=== PATIENT | male | born 1985 | race Hispanic/Latino ===

== ENCOUNTER 2017-07-10 00:54 | Emergency (ER) | payer OTHER, SELFPAY ==
[2017-07-10 01:25] LABS: #Basophils 0.1 thou/uL (0.0-0.2); #Eosinphils 0.2 thou/uL (0.0-0.7); #Lymphocytes 2.7 thou/uL (1.20-3.40); #Monocytes 0.9 thou/uL (0.11-0.59); #Neutrophils 6.3 thou/uL (1.40-6.50); %Basophils 1.2 % (0.0-1.0); %Eosinophils 2.3 % (0.0-10.0); %Lymphocytes 26.6 % (21.0-51.0); %Monocytes 9.1 % (0.0-10.0); %Neutrophils 60.9 % (42.0-75.0); Hemoglobin 16.2 g/dL (14.0-18.0); Mean Corpuscular HGB CONC 36.1 g/dL (32.0-36.0); Mean Corpuscular Hemoglobin 30.3 pg (27.0-31.0); Mean Corpuscular Volume 83.9 fl (80.0-94.0); Mean Platelet Volume 6.4 fL (7.4-10.4); Platelet Count 292 thou/uL (130-400); RBC Distribution Width 11.9 % (11.5-14.5); Red Blood Cell (RBC) Count 5.35 mill/uL (4.70-6.10); White Blood Cell (WBC) Count 10.3 thou/uL (4.8-10.8)
[2017-07-10 01:50] LABS: ALT (SGPT) 30 U/L (8-55); AST (SGOT) 20 U/L (5-34); Albumin 4.8 g/dL (3.5-5.0); Alkaline Phosphatase 76 U/L (40-150); Anion Gap 9 mmol/L (10-20); BUN (Urea Nitrogen) 10 mg/dL (8.9-20.6); Bilirubin, Total 0.5 mg/dL (0.2-1.2); Calc. Creatinine Clearance 0 mL/min (70-130); Calcium 9.9 mg/dL (7.8-10.44); Carbon Dioxide 31 mmol/L (22-29); Chloride 103 mmol/L (98-107); Estimated GFR-MDRD Greater than 90; Globulin 3.1 g/dL (2.4-3.5); Glucose 125 mg/dL (70-105); Potassium 3.6 mmol/L (3.5-5.1); Protein, Total 7.9 g/dL (6.0-8.3); Sodium 139 mmol/L (136-145)
[2017-07-10] MEDS ORDERED: Nitroglycerin 2% Ointment 1 INCH/1 GM Packet ONE (01:53)
[2017-07-10 01:54] LABS: CKMB 2.5 ng/mL (0-6.6); Troponin I Less than 0.010 ng/mL (< 0.028)
[2017-07-10 04:19] LABS: Troponin I Less than 0.010 ng/mL (< 0.028)
[2017-07-10] MEDS ORDERED: Nitroglycerin 2% Ointment 1 INCH/1 GM Packet TOP SCH (04:45)
[2017-07-10] MEDS ORDERED: Lisinopril 10 MG TAB PO SCH (04:45)
[2017-07-10] MEDS ORDERED: Aspirin 325 MG TAB PO SCH (04:45)
--- NOTE | 2017-07-10 07:54 | RAD ---
AP VIEW CHEST: HISTORY: Heart palpitations for 1 week, getting worse. FINDINGS: AP view chest is obtained. Mild pulmonary vascular congestion is seen. No evidence of effusions, pn eumonia, or pneumothorax is seen. No evidence of significant airspace disease is seen. IMPRESSION: Pulmonary vascular congestion; otherwise, unremarkable AP view chest. POS: [facility]
--- NOTE | 2017-08-21 | EKG ---
Test Reason : Blood Pressure : / mmHG Vent. Rate : 097 BPM Atrial Rate : 097 BPM P-R Int : 114 ms QRS Dur : 094 ms QT Int : 346 ms P-R-T Axes : 025 053 090 degrees QTc Int : 439 ms Normal sinus rhythm Nonspecific ST and T wave abnormality Abnormal ECG Confirmed by SAÚL JOHNSON ([id number]), editor continuity and script MOSHE SULLIVAN ([id number]) on 08/20/2017 11:59:48 PM Referred By: Confirmed By:SAÚL JOHNSON
== END 2017-07-10 05:42 | disposition home or self-care (01) ==
LOC: ERS 00:54
DX: I10 Essential (primary) hypertension (principal); F17.210 Nicotine dependence, cigarettes, uncomplicated
CPT/HCPCS: 36415; 71045; 80053; 82553; 84484; 85025; 93005; 94760

== ENCOUNTER 2017-09-27 18:40 | Emergency (ER) | payer SELFPAY ==
[2017-09-27 19:28] LABS: #Basophils 0.1 thou/uL (0.0-0.2); #Eosinphils 0.1 thou/uL (0.0-0.7); #Lymphocytes 2.3 thou/uL (1.20-3.40); #Monocytes 0.7 thou/uL (0.11-0.59); #Neutrophils 7.5 thou/uL (1.40-6.50); %Eosinophils 0.8 % (0.0-10.0); %Lymphocytes 21.5 % (21.0-51.0); %Monocytes 6.4 % (0.0-10.0); %Neutrophils 70.3 % (42.0-75.0); Hemoglobin 16.6 g/dL (14.0-18.0); Mean Corpuscular HGB CONC 35.9 g/dL (32.0-36.0); Mean Corpuscular Hemoglobin 30.3 pg (27.0-31.0); Mean Corpuscular Volume 84.4 fL (78.0-98.0); Mean Platelet Volume 6.6 fL (7.4-10.4); Platelet Count 253 thou/uL (130-400); RBC Distribution Width 11.8 % (11.5-14.5); Red Blood Cell (RBC) Count 5.49 mill/uL (4.70-6.10); White Blood Cell (WBC) Count 10.6 thou/uL (4.8-10.8)
[2017-09-27 19:51] LABS: ALT (SGPT) 26 U/L (8-55); AST (SGOT) 19 U/L (5-34); Albumin 5.2 g/dL (3.5-5.0); Alkaline Phosphatase 69 U/L (40-150); Anion Gap 18 mmol/L (10-20); BUN (Urea Nitrogen) 13 mg/dL (8.9-20.6); Bilirubin, Total 1.3 mg/dL (0.2-1.2); CK (CPK) 58 U/L (30-200); Calc. Creatinine Clearance 0 mL/min (70-130); Calcium 10.4 mg/dL (7.8-10.44); Carbon Dioxide 23 mmol/L (22-29); Chloride 102 mmol/L (98-107); Estimated GFR-MDRD 84; Globulin 3.1 g/dL (2.4-3.5); Glucose 88 mg/dL (70-105); Potassium 3.8 mmol/L (3.5-5.1); Protein, Total 8.3 g/dL (6.0-8.3)
[2017-09-27 19:54] LABS: Sodium 139 mmol/L (136-145)
[2017-09-27 19:55] LABS: CKMB 0.8 ng/mL (0-6.6); Troponin I Less than 0.010 ng/mL (< 0.028)
[2017-09-27] MEDS ORDERED: Ketorolac Tromethamine 30 MG/ML VIAL ONE ×2 (20:50→20:53)
[2017-09-27 22:31] LABS: Troponin I 0.018 ng/mL (< 0.028)
--- NOTE | 2017-10-01 11:48 | EKG ---
Test Reason : LUE DISCOMFORT Blood Pressure : / mmHG Vent. Rate : 097 BPM Atrial Rate : 097 BPM P-R Int : 148 ms QRS Dur : 094 ms QT Int : 346 ms P-R-T Axes : 025 068 069 degrees QTc Int : 439 ms Normal sinus rhythm with sinus arrhythmia Normal ECG Confirmed by TRISTEN WITT, STEVE ([id number]), photograph editor GEETA ROME ([id number]) on 10/01/2017 11:48:24 AM Referred By: Confirmed By:STEVE RAMON MD
== END 2017-09-27 22:57 | disposition home or self-care (01) ==
LOC: ERS 18:40
DX: R07.89 Other chest pain (principal); I10 Essential (primary) hypertension; F17.210 Nicotine dependence, cigarettes, uncomplicated; Z79.899 Other long term (current) drug therapy
CPT/HCPCS: 36415; 80053; 82550; 82553; 83880; 84484; 85025; 93005; 96372; J1885

== ENCOUNTER 2021-04-10 17:02 | Emergency (ER) | payer SELFPAY ==
[2021-04-11 17:15] LABS: SARS-CoV-2 PCR by NAA DETECTED (NotDetected)
== END 2021-04-10 17:52 | disposition home or self-care (01) ==
LOC: ERS 17:02
DX: U07.1 COVID-19 (principal); I10 Essential (primary) hypertension; Z87.891 Personal history of nicotine dependence
CPT/HCPCS: 99283; U0003; U0005

== ENCOUNTER 2021-04-14 17:01 | Emergency (ER) | payer SELFPAY ==
[2021-04-14 21:37] LABS: #Monocytes 0.5 thou/uL (0.11-0.59); #Neutrophils 3.3 thou/uL (1.40-6.50); %Basophils 0.3 % (0.0-1.0); %Eosinophils 0.8 % (0.0-10.0); %Lymphocytes 20.5 % (21.0-51.0); %Monocytes 10.1 % (0.0-10.0); %Neutrophils 68.4 % (42.0-75.0); Hemoglobin 16.4 g/dL (14.0-18.0); Mean Corpuscular HGB CONC 33.4 g/dL (32.0-36.0); Mean Corpuscular Hemoglobin 28.3 pg (27.0-31.0); Mean Corpuscular Volume 84.8 fL (78.0-98.0); Platelet Count 235 thou/uL (130-400); RBC Distribution Width 12.1 % (11.5-14.5); Red Blood Cell (RBC) Count 5.78 mill/uL (4.70-6.10); White Blood Cell (WBC) Count 4.8 thou/uL (4.8-10.8)
[2021-04-14 21:39] LABS: ALT (SGPT) 28 U/L (8-55); AST (SGOT) 19 U/L (5-34); Albumin 4.8 g/dL (3.5-5.0); Alkaline Phosphatase 76 U/L (40-110); Anion Gap 16 mmol/L (10-20); BUN (Urea Nitrogen) 7 mg/dL (8.9-20.6); Bilirubin, Total 0.6 mg/dL (0.2-1.2); Calc. Creatinine Clearance 0 mL/min (70-130); Carbon Dioxide 25 mmol/L (22-29); Chloride 104 mmol/L (98-107); Glucose 130 mg/dL (70-105); Potassium 4.1 mmol/L (3.5-5.1); Protein, Total 7.8 g/dL (6.0-8.3); Sodium 141 mmol/L (136-145)
[2021-04-14] MEDS ORDERED: Albuterol 200 PUFF (6.7GM INHALER) ONE (23:01)
== END 2021-04-14 23:27 | disposition home or self-care (01) ==
LOC: ERS 17:01
DX: U07.1 COVID-19 (principal); I10 Essential (primary) hypertension; F17.210 Nicotine dependence, cigarettes, uncomplicated
CPT/HCPCS: 36415; 71045; 80053; 84484; 85025; 85379; 93005

== ENCOUNTER 2021-04-15 00:34 | Emergency (ER) | payer SELFPAY | END 2021-04-15 02:28 | disposition home or self-care (01) | LOC: ERS 00:34 | DX: R55 Syncope and collapse (principal); S09.90XA Unspecified injury of head, initial encounter; S20.211A Contusion of right front wall of thorax, initial encounter; Z86.16 Personal history of COVID-19; Z87.891 Personal history of nicotine dependence | CPT/HCPCS: 70450; 71045; 93005 ==

== ENCOUNTER 2022-11-29 15:09 | Emergency (ER) | payer OTHER | END 2022-11-29 16:41 | disposition home or self-care (01) | LOC: ERS 15:09 | DX: R07.81 Pleurodynia (principal); I10 Essential (primary) hypertension; F17.210 Nicotine dependence, cigarettes, uncomplicated; V89.2XXA Person injured in unspecified motor-vehicle accident, traffic, initial encounter ==